=== PATIENT | female | born 1985 | race Hispanic/Latino ===

== ENCOUNTER 2017-09-23 13:20 | Emergency (ER) | payer SELFPAY ==
[2017-09-23 14:08] VITALS: BP 132/85
--- NOTE | 2017-09-23 20:07 | Emergency Department Report ---
- General Chief Complaint: Upper Respiratory Infection Stated Complaint: SOB Time Seen by Provider: 09/23/17 19:18 Source: patient Mode of arrival: Ambulatory Limitations: No Limitations - History of Present Illness Initial Comments: This is a 32-year-old female nontoxic, well nourished in appearance, no acute signs of distress presents to the ED with c/o of productive cough, rhinnorrhea, and nasal congestion [id number]. Patient denies any recent travels, long car rides , or recent hospital stays. Patient denies any calf pain or calf tenderness. Patient described productive cough as yellow/green mucus production. Patient denies any chest pain, shortness of breath, difficulty breathing, headache, stiff neck, numbness, tingling, abdominal pain, blurred vision, nausea or vomiting. Patient denies any hemoptysis. Denies any allergies. PMH includes HTN. MD Complaint: cough, rhinorrhea, nasal congestion -: month(s) (1) Severity: mild Severity scale (0 -10): 0 Consistency: constant Improves With: nothing Worsens With: nothing Associated Symptoms: rhinorrhea, nasal congestion, cough. denies: fever, chills , myalgias, diaphoresis, headache, sore throat, stiff neck, chest pain, shortness of breath, abdominal pain, nausea, vomiting, diarrhea, dysuria, rash, confusion, right sweats, weight loss, epistaxis, hoarseness, ear pain Treatments Prior to Arrival: none - Related Data Previous Rx's Medication Instructions Recorded Last Taken Type Permethrin 5% [Acticin 5% CREAM] 1 applicatio TP ONCE #1 tube 07/19/14 Unknown Rx Sulfamethoxazole/Trimethoprim 1 each PO BID #20 tablet 07/19/14 Unknown Rx [Bactrim Ds] Acetaminophen/Codeine 1 tab PO Q6H PRN #10 tab 08/12/14 Unknown Rx [Acetaminophen-Codeine #3 TAB] Ondansetron [Zofran Odt] 4 mg PO Q6H #10 tab.rapdis 08/12/14 Unknown Rx Ibuprofen [Motrin 800 MG tab] 800 mg PO Q8HR PRN #15 tablet 09/19/14 Unknown Rx Fluticasone [Flonase] 1 spray NS QDAY #1 bottle 03/21/15 Unknown Rx Ondansetron [Zofran Odt] 4 mg PO Q6HR #20 tab.rapdis 03/21/15 Unknown Rx Oxymetazoline 0.05% [Afrin] 1 spray NS DAILY #1 bottle 03/21/15 Unknown Rx oxyCODONE /ACETAMINOPHEN [Percocet 1 tab PO Q6HR PRN #10 tablet 03/21/15 Unknown Rx 5/325 mg] Amoxicillin [Trimox CAP] 500 mg PO Q12HR #20 capsule 03/23/15 Unknown Rx Neomy/Polymyx B/Hc (Otic) Soln 4 drops OT TID #1 bottle 03/23/15 Unknown Rx [Cortisporin (Otic) Soln] oxyCODONE /ACETAMINOPHEN [Percocet 1 tab PO Q6HR PRN #5 tablet 03/23/15 Unknown Rx 5/325 mg] Ibuprofen [Motrin 800 MG tab] 800 mg PO Q8HR PRN #20 tablet 09/04/16 Unknown Rx Sulfamethoxazole/Trimethoprim 1 each PO BID #20 tablet 09/04/16 Unknown Rx [Bactrim DS TAB] Azithromycin [Zithromax Z-RENEE] 250 mg PO DAILY #6 tablet 09/23/17 Unknown Rx Benzonatate [Tessalon Perle] 100 mg PO Q6H PRN #20 capsule 09/23/17 Unknown Rx Allergies Allergy/AdvReac Type Severity Reaction Status Date / Time No Known Allergies Allergy Unverified 09/04/16 09:34 ED Review of Systems ROS: Stated complaint: SOB Other details as noted in HPI Constitutional: denies: chills, fever Eyes: denies: eye pain, eye discharge, vision change ENT: denies: ear pain, throat pain Respiratory: cough. denies: shortness of breath, wheezing Cardiovascular: denies: chest pain, palpitations Endocrine: no symptoms reported Gastrointestinal: denies: abdominal pain, nausea, diarrhea Genitourinary: denies: urgency, dysuria, discharge Musculoskeletal: denies: back pain, joint swelling, arthralgia Skin: denies: rash, lesions Neurological: denies: headache, weakness, paresthesias Psychiatric: denies: anxiety, depression Hematological/Lymphatic: denies: easy bleeding, easy bruising ED Past Medical Hx - Past Medical History Hx Hypertension: Yes (gestational) - Surgical History Additional Surgical History: C-sections x 2 - Social History Smoking Status: Never Smoker Substance Use Type: None - Medications Home Medications: Home Medications Medication Instructions Recorded Confirmed Last Taken Type Permethrin 5% [Acticin 5% CREAM] 1 applicatio TP ONCE #1 tube 07/19/14 Unknown Rx Sulfamethoxazole/Trimethoprim 1 each PO BID #20 tablet 07/19/14 Unknown Rx [Bactrim Ds] Acetaminophen/Codeine 1 tab PO Q6H PRN #10 tab 08/12/14 Unknown Rx [Acetaminophen-Codeine #3 TAB] Ondansetron [Zofran Odt] 4 mg PO Q6H #10 tab.rapdis 08/12/14 Unknown Rx Ibuprofen [Motrin 800 MG tab] 800 mg PO Q8HR PRN #15 tablet 09/19/14 Unknown Rx Fluticasone [Flonase] 1 spray NS QDAY #1 bottle 03/21/15 Unknown Rx Ondansetron [Zofran Odt] 4 mg PO Q6HR #20 tab.rapdis 03/21/15 Unknown Rx Oxymetazoline 0.05% [Afrin] 1 spray NS DAILY #1 bottle 03/21/15 Unknown Rx oxyCODONE /ACETAMINOPHEN [Percocet 1 tab PO Q6HR PRN #10 tablet 03/21/15 Unknown Rx 5/325 mg] Amoxicillin [Trimox CAP] 500 mg PO Q12HR #20 capsule 03/23/15 Unknown Rx Neomy/Polymyx B/Hc (Otic) Soln 4 drops OT TID #1 bottle 03/23/15 Unknown Rx [Cortisporin (Otic) Soln] oxyCODONE /ACETAMINOPHEN [Percocet 1 tab PO Q6HR PRN #5 tablet 03/23/15 Unknown Rx 5/325 mg] Ibuprofen [Motrin 800 MG tab] 800 mg PO Q8HR PRN #20 tablet 09/04/16 Unknown Rx Sulfamethoxazole/Trimethoprim 1 each PO BID #20 tablet 09/04/16 Unknown Rx [Bactrim DS TAB] Azithromycin [Zithromax Z-RENEE] 250 mg PO DAILY #6 tablet 09/23/17 Unknown Rx Benzonatate [Tessalon Perle] 100 mg PO Q6H PRN #20 capsule 09/23/17 Unknown Rx ED Physical Exam - General Limitations: No Limitations General appearance: alert, in no apparent distress - Head Head exam: Present: atraumatic, normocephalic, normal inspection - Eye Eye exam: Present: normal appearance, PERRL, EOMI. Absent: scleral icterus, conjunctival injection, nystagmus, periorbital swelling, periorbital tenderness Pupils: Present: normal accommodation - ENT ENT exam: Present: normal exam, normal orophraynx, mucous membranes moist, TM's normal bilaterally, normal external ear exam - Neck Neck exam: Present: normal inspection, full ROM. Absent: tenderness, meningismus, lymphadenopathy, thyromegaly - Respiratory Respiratory exam: Present: normal lung sounds bilaterally. Absent: respiratory distress, wheezes, rales, rhonchi, stridor, chest wall tenderness, accessory muscle use, decreased breath sounds, prolonged expiratory - Cardiovascular Cardiovascular Exam: Present: regular rate, normal rhythm, normal heart sounds. Absent: bradycardia, tachycardia, irregular rhythm, systolic murmur, diastolic murmur, rubs, gallop - GI/Abdominal GI/Abdominal exam: Present: soft, normal bowel sounds. Absent: distended, guarding, rebound, rigid, diminished bowel sounds - Rectal Rectal exam: Present: deferred - Extremities Exam Extremities exam: Present: normal inspection, full ROM, normal capillary refill. Absent: tenderness, pedal edema, joint swelling, calf tenderness - Back Exam Back exam: Present: normal inspection, full ROM. Absent: tenderness, CVA tenderness (R), CVA tenderness (L), muscle spasm, paraspinal tenderness, vertebral tenderness, rash noted - Neurological Exam Neurological exam: Present: alert, oriented X3, CN II-XII intact, normal gait, reflexes normal - Psychiatric Psychiatric exam: Present: normal affect, normal mood - Skin Skin exam: Present: warm, dry, intact, normal color. Absent: rash ED Course Vital Signs 09/23/17 14:04 Temperature 98.2 F Pulse Rate 89 Respiratory 20 Rate Blood Pressure 132/85 O2 Sat by Pulse 97 Oximetry - Reevaluation(s) Reevaluation #1: 09/23/17 20:08 Patient is speaking in full sentences with no signs of distress noted. ED Medical Decision Making - Medical Decision Making This is a 32-year-old female that presents with upper respiratory infection. Patient is stable and was examined by me. Chest xray has been obtained and dictated by radiologist with normal exam. Patient notified of x-ray results with no questions noted by the patient. Influenza swab has been obtained and negative. Patient received Tessalon Perle in the ED which patient stated that his symptoms is improving of cough and sore throat. I will treat patient empirically with azithromycin due to symptoms being 2 weeks and is worsening. Wells criteria 0 points. Patient was instructed to rest and hydration. Vital signs are stable before discharge. Patient was instructed Follow-up with a primary care doctor in 3-5 days or if symptoms worsen and continue return to emergency room as soon as possible. At time time of discharge, the patient does not seem toxic or ill in appearance. No acute signs of distress noted. Patient agrees to discharge treatment plan of care. No further questions noted by the patient. Critical care attestation.: If time is entered above; I have spent that time in minutes in the direct care of this critically ill patient, excluding procedure time. ED Disposition Clinical Impression: Upper respiratory infection Qualifiers: URI type: unspecified URI Qualified Code(s): J06.9 - Acute upper respiratory infection, unspecified Disposition: - TO HOME OR SELFCARE Is pt being admited?: No Does the pt Need Aspirin: No Condition: Stable Instructions: Benzonatate (By mouth), Azithromycin (By mouth), Upper Respiratory Infection (ED) Additional Instructions: Follow-up with a primary care doctor in 3-5 days or if symptoms worsen and continue return to emergency room as soon as possible. Increase rest and hydration. Prescriptions: Azithromycin [Zithromax Z-RENEE] 250 mg PO DAILY #6 tablet Benzonatate [Tessalon Perle] 100 mg PO Q6H PRN #20 capsule PRN Reason: Cough Referrals: EDITA SARAVIA MD [Primary Care Provider] - 3-5 Days PRIMARY CARE, [Referring] - 3-5 Days TRISTAN MONET MD [Staff Physician] - 3-5 Days [facility] [Outside] - 3-5 Days [facility] [Outside] - 3-5 Days Forms: Work/School Release Form(ED)
[2017-09-23] MEDS ORDERED: TESSALON PERLES PO ONE (20:10)
--- NOTE | 2017-09-23 21:22 | XRay Report ---
FINAL REPORT PROCEDURE: XR CHEST ROUTINE 2V TECHNIQUE: PA and lateral chest radiographs were obtained. CPT 25345 HISTORY: cough COMPARISON: No prior studies are available for comparison. FINDINGS: Heart: Normal. Mediastinum/Vessels: Normal. Lungs/Pleural space: Normal. Bony thorax: No acute osseous abnormality. Other: IMPRESSION: Negative examination.
== END 2017-09-23 22:07 | disposition home or self-care (01) ==
LOC: ED 13:20
DX: J06.9 Acute upper respiratory infection, unspecified (principal)
CPT/HCPCS: 71046; 87400